=== PATIENT | female | born 1980 | race Caucasian/White ===

== ENCOUNTER 2022-04-13 18:47 | Emergency (ER) | payer BC ==
[2022-04-13 18:58] VITALS: TEMP 98; BMI 24.2
[2022-04-13] MEDS ORDERED: SODIUM CHLORIDE 1,000 ML IV STA (20:29)
[2022-04-13] MEDS ORDERED: morphine CARPU-JECT 4 MG/1 ML DISP.SYRIN IVPUSH ONE (20:29)
[2022-04-13] MEDS ORDERED: ONDANSETRON 4 MG/2 ML VIAL IVPUSH ONE (20:29)
[2022-04-13] MEDS ORDERED: ONDANSETRON 4 MG/2 ML VIAL ONE (20:55)
[2022-04-13] MEDS ORDERED: morphine SULFATE 4 MG/ML VIAL ONE (20:55)
[2022-04-13 21:11] LABS: BASO % 0.4 % (0-2.0); EOS % 0.6 % (0-4.5); HEMATOCRIT 36.7 % (32.4-45.2); HEMOGLOBIN 12.5 GM/dL (10.7-15.3); LYMPH % 16.8 % (8-40); MCH 29.9 pg (25.7-33.7); MCHC 34.2 g/dl (32.0-36.0); MEAN CELL VOLUME 87.5 fl (80-96); MEAN PLT VOLUME 6.9 fl (7.5-11.1); MONO % 7.7 % (3.8-10.2); NEUT % 74.5 % (42.8-82.8); PLATELET COUNT 376 10^3/uL (134-434); RBC 4.19 M/mm3 (3.60-5.2); RDW 13.4 % (11.6-15.6)
[2022-04-13 21:15] LABS: EPI CELLS 35 /uL (0-25.1); HYALINE CASTS 0 /uL (0-3.1); URINE APPEARANCE CLEAR; URINE BACTERIA 3450 /uL (0-1359); URINE BILIRUBIN NEGATIVE (NEGATIVE); URINE COLOR YELLOW; URINE GLUCOSE (UA) NEGATIVE (NEGATIVE); URINE KETONE NEGATIVE (NEGATIVE); URINE LEUK ESTERASE TRACE (NEGATIVE); URINE NITRITE NEGATIVE (NEGATIVE); URINE PROTEIN NEGATIVE (NEGATIVE); URINE RBC 22 /uL (0-23.9); URINE UROBILINOGEN 0.2 mg/dL (0.2-1.0); URINE WBC 55 /uL (0-25.8)
[2022-04-13 21:16] LABS: HCG,QUALITATIVE URINE Negative
[2022-04-13 21:39] LABS: CALCIUM 8.8 mg/dL (8.5-10.1)
[2022-04-13 21:40] LABS: ALBUMIN 3.9 g/dl (3.4-5.0); BLOOD UREA NITROGEN 10.4 mg/dL (7-18)
[2022-04-13 21:43] LABS: CREATININE 0.9 mg/dL (0.55-1.3)
[2022-04-13 21:44] LABS: BILIRUBIN,TOTAL 0.4 mg/dL (0.2-1); TOT PROT 7.1 g/dl (6.4-8.2)
[2022-04-13] MEDS ORDERED: FLUCONAZOLE 150 MG TABLET PO ONE ×2 (22:40→22:45)
[2022-04-13] MEDS ORDERED: ACETAMINOPHEN 1000 MG/100 ML BAG IVPB ONE (22:50)
[2022-04-13 22:55] VITALS: BP 148/90; PULSE 74; RESP 18
[2022-04-13] MEDS ORDERED: ACETAMINOPHEN INJECTION 100 ML IVPB ONE (23:01)
== END 2022-04-14 00:49 | disposition home or self-care (01) ==
LOC: JER 18:47
PROC: 3E033GC Introduction of Other Therapeutic Substance into Peripheral Vein, Percutaneous Approach (ICD-10-PCS; principal; 2022-04-13)
DX: N13.30 Unspecified hydronephrosis (principal); N39.0 Urinary tract infection, site not specified; N83.201 Unspecified ovarian cyst, right side; D25.9 Leiomyoma of uterus, unspecified; B37.31 Acute candidiasis of vulva and vagina
CPT/HCPCS: 36415; 74177-TC; 76830-TC; 80053; 81003; 83690; 84703; 85025; 87070; 87086; 87186; 87205; 87491; 87591; 87661; 99285-25; Q9967

== ENCOUNTER 2024-02-27 16:50 | Observation (INO) | payer BC ==
[2024-02-27] MEDS ORDERED: ONDANSETRON 4 MG/2 ML VIAL ONE (18:29)
[2024-02-27] MEDS: SODIUM CHLORIDE 0.9% 500 ML INFUS.BAG IV ONE (19:09)
[2024-02-27] MEDS: ONDANSETRON 4 MG/2 ML VIAL IVPB ONE (19:09)
[2024-02-27 19:12] LABS: BASO % 0.5 % (0-2.0); HEMATOCRIT 37.3 % (32.4-45.2); HEMOGLOBIN 12.3 GM/dL (10.7-15.3); LYMPH % 17.5 % (8-40); MCHC 32.9 g/dl (32.0-36.0); MEAN CELL VOLUME 88.2 fl (80-96); MEAN PLT VOLUME 7.3 fl (7.5-11.1); PLATELET COUNT 371 10^3/uL (134-434); RBC 4.23 M/mm3 (3.60-5.2); RDW 15.4 % (11.6-15.6); WHITE BLOOD COUNT 7.7 K/mm3 (4.0-10.0)
[2024-02-27 19:16] LABS: EPI CELLS 26 /uL (0-25.1); HCG,QUALITATIVE URINE Negative; HYALINE CASTS 1 /uL (0-3.1); PH,URINE 5.5 (5.0-8.0); URINE APPEARANCE CLEAR; URINE BACTERIA 318 /uL (0-1359); URINE BILIRUBIN NEGATIVE (NEGATIVE); URINE COLOR YELLOW; URINE GLUCOSE (UA) NEGATIVE (NEGATIVE); URINE KETONE 4+ (NEGATIVE); URINE LEUK ESTERASE NEGATIVE (NEGATIVE); URINE NITRITE NEGATIVE (NEGATIVE); URINE PROTEIN TRACE (NEGATIVE); URINE RBC 9 /uL (0-23.9); URINE WBC 12 /uL (0-25.8)
[2024-02-27 19:34] LABS: POTASSIUM 4.2 mmol/L (3.5-5.1)
[2024-02-27 19:35] LABS: ALBUMIN 4.4 g/dl (3.4-5.0)
[2024-02-27 19:39] LABS: CREATININE 1.1 mg/dL (0.55-1.3)
[2024-02-27 19:40] LABS: BILIRUBIN,TOTAL 0.5 mg/dL (0.2-1); TOT PROT 7.7 g/dl (6.4-8.2)
[2024-02-27] MEDS: DEXTROSE 5%-NORMAL SALINE 1,000 ML IV ONE (21:05)
[2024-02-28 01:02] LABS: POTASSIUM 3.3 mmol/L (3.5-5.1)
[2024-02-28 01:03] LABS: CALCIUM 8.5 mg/dL (8.5-10.1)
[2024-02-28 01:04] LABS: BLOOD UREA NITROGEN 9.1 mg/dL (7-18)
[2024-02-28 01:05] LABS: METHADONE, UR NEGATIVE (NEGATIVE); PHENCYCLIDINE,URINE NEGATIVE (NEGATIVE); URINE BENZODIAZEPINES NEGATIVE (NEGATIVE)
[2024-02-28 01:06] LABS: COCAINE, UR NEGATIVE (NEGATIVE)
[2024-02-28 01:07] LABS: CREATININE 1.1 mg/dL (0.55-1.3)
[2024-02-28 01:07] LABS: OPIATES, URI NEGATIVE (NEGATIVE); URINE AMPHETAMINES NEGATIVE (NEGATIVE); URINE BARBITURATES NEGATIVE (NEGATIVE)
[2024-02-28] MEDS ORDERED: ONDANSETRON 4 MG/2 ML VIAL ONE (01:27)
[2024-02-28] MEDS: ONDANSETRON 4 MG/2 ML VIAL IVPUSH ONE (01:35)
[2024-02-28] MEDS: SODIUM CHLORIDE 1,000 ML IV STA (01:35)
[2024-02-28] MEDS: POTASSIUM CHLORIDE ORAL LIQUID 20 MEQ/15 ML PO ONE (02:02)
[2024-02-28] MEDS: SODIUM CHLORIDE 1,000 ML IV SCH (02:20)
[2024-02-28] MEDS ORDERED: TRIMETHOBENZAMIDE HCL 200MG/2ML INJ IM ONE (05:51)
[2024-02-28] MEDS: TRIMETHOBENZAMIDE HCL 200MG/2ML INJ IM PRN (06:00)
[2024-02-28 07:29] LABS: BASO % 0.6 % (0-2.0); EOS % 0.7 % (0-4.5); HEMATOCRIT 30.5 % (32.4-45.2); HEMOGLOBIN 9.8 GM/dL (10.7-15.3); LYMPH % 25.7 % (8-40); MCH 28.8 pg (25.7-33.7); MCHC 32.1 g/dl (32.0-36.0); MEAN CELL VOLUME 89.8 fl (80-96); MEAN PLT VOLUME 7.4 fl (7.5-11.1); MONO % 9.3 % (3.8-10.2); NEUT % 63.7 % (42.8-82.8); PLATELET COUNT 255 10^3/uL (134-434); RDW 15.3 % (11.6-15.6); WHITE BLOOD COUNT 7.2 K/mm3 (4.0-10.0)
[2024-02-28 07:45] LABS: POTASSIUM 4.2 mmol/L (3.5-5.1)
[2024-02-28 07:50] LABS: BLOOD UREA NITROGEN 7.3 mg/dL (7-18); CALCIUM 8.3 mg/dL (8.5-10.1); MAGNESIUM 1.7 mg/dL (1.8-2.4)
[2024-02-28 07:54] LABS: PHOSPHOROUS 2.1 mg/dL (2.5-4.9)
[2024-02-28 07:55] LABS: BILIRUBIN,TOTAL 0.8 mg/dL (0.2-1); TOT PROT 5.9 g/dl (6.4-8.2)
[2024-02-28 07:57] LABS: ALBUMIN 3.3 g/dl (3.4-5.0)
[2024-02-28] MEDS: ENOXAPARIN NA (PORCINE) 40 MG/0.4 ML DISP.SYRIN SQ SCH (11:10)
[2024-02-28] MEDS: LEVOTHYROXINE NA 112 MCG TABLET (FP) PO SCH (11:11)
[2024-02-28] MEDS: SERTRALINE HCL 50 MG TABLET (FP) PO SCH (11:11)
[2024-02-28] MEDS: ACETAMINOPHEN 1000 MG/100 ML BAG IVPB PRN (11:13)
[2024-02-28] MEDS: ARIPiprazole 2 MG TABLET PO SCH (11:30)
[2024-02-28 13:13] VITALS: RESP 18
[2024-02-28] MEDS: MAGNESIUM 1GM/D5W 100ML - 100 ML IVPB IVPB ONE ×2 (14:17→14:34)
[2024-02-28] MEDS: NAPH,MB-DB/K PH,MBDB POWDER PACKET PO ONE ×2 (14:17→19:34)
[2024-02-28] MEDS: ONDANSETRON 4 MG/2 ML VIAL IVPB PRN (14:25)
[2024-02-28 20:57] LABS: HIV INTERPRETATION NEGATIVE (NEGATIVE)
[2024-02-29] MEDS: LEVOTHYROXINE NA 100 MCG TABLET (FP) PO SCH (06:07)
[2024-02-29 09:58] LABS: EOS % 0.7 % (0-4.5); HEMOGLOBIN 10.5 GM/dL (10.7-15.3); LYMPH % 24.1 % (8-40); MCH 29.8 pg (25.7-33.7); MEAN CELL VOLUME 87.6 fl (80-96); MEAN PLT VOLUME 7.3 fl (7.5-11.1); MONO % 6.7 % (3.8-10.2); NEUT % 67.5 % (42.8-82.8); PLATELET COUNT 266 10^3/uL (134-434); RBC 3.53 M/mm3 (3.60-5.2); RDW 15.2 % (11.6-15.6); WHITE BLOOD COUNT 6.5 K/mm3 (4.0-10.0)
[2024-02-29 10:16] LABS: CHLORIDE 108 mmol/L (98-107); POTASSIUM 3.4 mmol/L (3.5-5.1); SODIUM 138 mmol/L (136-145)
[2024-02-29 10:18] LABS: CALCIUM 9.2 mg/dL (8.5-10.1)
[2024-02-29 10:19] LABS: ALBUMIN 3.6 g/dl (3.4-5.0); ANION GAP 9 mmol/L (4-13); CO2 22 mmol/L (21-32); GLUCOSE,RANDOM 96 mg/dL (74-106)
[2024-02-29 10:21] LABS: BLOOD UREA NITROGEN 2.1 mg/dL (7-18)
[2024-02-29 10:22] LABS: CREATININE 0.9 mg/dL (0.55-1.3); PHOSPHOROUS 2.2 mg/dL (2.5-4.9); SGOT/AST 11 U/L (15-37); SGPT/ALT 9 U/L (13-61)
[2024-02-29 10:23] LABS: BILIRUBIN,TOTAL 0.5 mg/dL (0.2-1)
[2024-02-29 10:24] LABS: TOT PROT 6.3 g/dl (6.4-8.2)
[2024-02-29 10:25] LABS: ALK PHOS 48 U/L (45-117)
[2024-02-29] MEDS: BUPRENORPHINE/NALOXONE 2 MG/0.5 MG FILM PACKET SL SCH (11:25)
[2024-02-29 14:49] VITALS: BMI 20.5
[2024-02-29] MEDS: ACETAMINOPHEN 325 MG TABLET (FP) PO ONE (19:22)
[2024-02-29] MEDS: METOCLOPRAMIDE HCL INJECTION 10 MG/2 ML VIAL IVPUSH PRN (21:07)
[2024-03-01] MEDS: ACETAMINOPHEN 325 MG TABLET (FP) PO ONE (07:51)
[2024-03-01 11:37] LABS: BASO % 0.8 % (0-2.0); EOS % 0.9 % (0-4.5); HEMATOCRIT 31.1 % (32.4-45.2); HEMOGLOBIN 10.7 GM/dL (10.7-15.3); LYMPH % 11.2 % (8-40); MCH 29.9 pg (25.7-33.7); MCHC 34.5 g/dl (32.0-36.0); MEAN CELL VOLUME 86.7 fl (80-96); MEAN PLT VOLUME 6.7 fl (7.5-11.1); MONO % 7.1 % (3.8-10.2); PLATELET COUNT 245 10^3/uL (134-434); RBC 3.59 M/mm3 (3.60-5.2); RDW 15.2 % (11.6-15.6); WHITE BLOOD COUNT 4.2 K/mm3 (4.0-10.0)
[2024-03-01 11:59] LABS: POTASSIUM 3.3 mmol/L (3.5-5.1)
[2024-03-01 12:01] LABS: CALCIUM 9.1 mg/dL (8.5-10.1)
[2024-03-01 12:02] LABS: ALBUMIN 3.5 g/dl (3.4-5.0); BLOOD UREA NITROGEN 3.7 mg/dL (7-18); MAGNESIUM 1.8 mg/dL (1.8-2.4)
[2024-03-01 12:05] LABS: CREATININE 0.9 mg/dL (0.55-1.3)
[2024-03-01 12:06] LABS: BILIRUBIN,TOTAL 0.4 mg/dL (0.2-1); TOT PROT 6.2 g/dl (6.4-8.2)
[2024-03-01 15:07] VITALS: BP 123/86; PULSE 94; TEMP 99.1
== END 2024-03-01 15:13 | disposition home or self-care (01) ==
LOC: JER 16:50 → JERBED 22:13 → J7W 02-28 09:06
PROVIDERS: ADMIT Internal Medicine
PROC: 3E033NZ Introduction of Analgesics, Hypnotics, Sedatives into Peripheral Vein, Percutaneous Approach (ICD-10-PCS; principal; 2024-02-27)
PROC: 3E0337Z Introduction of Electrolytic and Water Balance Substance into Peripheral Vein, Percutaneous Approach (ICD-10-PCS; 2024-02-27)
PROC: 3E033GC Introduction of Other Therapeutic Substance into Peripheral Vein, Percutaneous Approach (ICD-10-PCS; 2024-02-27)
PROC: 3E023GC Introduction of Other Therapeutic Substance into Muscle, Percutaneous Approach (ICD-10-PCS; 2024-02-27)
PROC: 3E013GC Introduction of Other Therapeutic Substance into Subcutaneous Tissue, Percutaneous Approach (ICD-10-PCS; 2024-02-27)
DX: R11.2 Nausea with vomiting, unspecified (principal); K59.00 Constipation, unspecified; E89.0 Postprocedural hypothyroidism; F41.9 Anxiety disorder, unspecified; F32.A Depression, unspecified; E88.89 Other specified metabolic disorders; E86.0 Dehydration; E46 Unspecified protein-calorie malnutrition; Z98.84 Bariatric surgery status; R31.29 Other microscopic hematuria
CPT/HCPCS: 0241U-QW; 36415; 74177-TC; 76705-TC; 80048; 80053; 80307; 81003; 83690; 83735; 84100; 84439; 84443; 84703; 85025; 86803; 87086; 87389; 93005; 93010; 99285-25; G0378; J0131; Q9967